=== PATIENT | male | born 1965 | race Caucasian/White ===

== ENCOUNTER 2021-02-03 10:17 | Emergency (ER) | payer OTHER ==
[~2021-02-03] VITALS: Ht 167.6 cm; Wt 63.5 kg
[2021-02-03] MEDS ORDERED: CEPH500 PO (12:07)
== END 2021-02-03 12:29 | disposition home or self-care (01) ==
LOC: ER 10:17
DX: S01.511A Laceration without foreign body of lip, initial encounter (principal); Z23 Encounter for immunization; W20.8XXA Other cause of strike by thrown, projected or falling object, initial encounter
CPT/HCPCS: 12052; 90471; 90714; 99282-25